=== PATIENT | male | born 1995 | race Caucasian/White ===

== ENCOUNTER 2022-09-05 18:39 | Emergency (ER) | payer MEDICAID ==
[~2022-09-05] VITALS: Ht 162.6 cm; Wt 77.1 kg
[2022-09-05 18:57] VITALS: BP_SYST 123
[2022-09-05] MEDS ORDERED: IBUP-1971 PO (20:27)
[2022-09-05] MEDS ORDERED: VIS25 PO (20:27)
[2022-09-05] MEDS ORDERED: ONDA8TAB60 PO (20:27)
[2022-09-05 20:47] VITALS: BP_SYST 125
== END 2022-09-05 20:47 | disposition home or self-care (01) ==
LOC: SED 18:39
DX: R07.89 Other chest pain (principal); R51.9 Headache, unspecified; F41.9 Anxiety disorder, unspecified; R42 Dizziness and giddiness; F17.210 Nicotine dependence, cigarettes, uncomplicated
CPT/HCPCS: 93005; 99283

== ENCOUNTER 2022-10-21 06:25 | Emergency (ER) | payer MEDICAID ==
[~2022-10-21] VITALS: Ht 157.5 cm; Wt 81.6 kg
[~2022-10-21 06:25] MED LIST: IBUP-1971 PO; ONDA8TAB60 PO; VIS25 PO
[2022-10-21 06:30] VITALS: BP_SYST 137
--- NOTE | 2022-10-21 06:30 | NUR ---
Patient triaged and placed in ER bed 3 for evaluation. Vital signs updated, denied any acute distress at this time. Report given to HANNAH NICHOLAS for continuity of care. Instructed to notify ED staff for any changes in condition or worsening of symptoms. Patient verbalized understanding.
--- NOTE | 2022-10-21 06:50 | NUR ---
PT BIB SELF FROM HOME C/O 01/11 CHEST PAIN THAT RADIATES TO LEFT SHOULDER. PT STATES ASHLEY AND NAUSEA. PT STATES INTERMITTANT CHEST PAIN X 2MO. PT IS AAO X4. PT DENIES PRIOR HISTORY. PT RESTING COMFORTABLY IN BED WITH RAILS UP VSS
[2022-10-21] MEDS ORDERED: KETOROLAC TROMETHAMINE 60 MG/2 ML VIAL IM ONE (07:00)
[2022-10-21 07:08] LABS: BASOPHILS % (AUTO) 0.5 % (0.0-2.0); EOSINOPHILS # (AUTO) 0.3 K/uL (0.0-0.4); EOSINOPHILS % (AUTO) 5.5 % (0.0-4.0); HEMOGLOBIN 15.1 g/dL (14.0-18.0); LYMPHOCYTES # (AUTO) 2.6 K/uL (1.0-5.5); LYMPHOCYTES % (AUTO) 45.8 % (20.5-51.5); MEAN CORPUSCULAR HEMOGLOBIN 30 pg (27-31); MEAN CORPUSCULAR HGB CONC 34 % (32-36); MEAN CORPUSCULAR VOLUME 89 fL (79.0-98.0); MONOCYTES # (AUTO) 0.3 K/uL (0.0-1.0); MONOCYTES % (AUTO) 5.4 % (1.7-9.3); NEUTROPHILS # (AUTO) 2.4 K/uL (1.8-7.7); NEUTROPHILS % (AUTO) 42.8 % (40.0-70.0); PLATELET COUNT (AUTO) 338 K/uL (130-430); RED BLOOD CELL COUNT(AUTO) 4.97 MIL/uL (4.2-6.2); RED CELL DISTRIBUTION WIDTH 12.4 % (9.0-15.0); WHITE BLOOD COUNT (AUTO) 5.7 K/uL (4.8-10.8)
[2022-10-21] MEDS ORDERED: KETOROLAC TROMETHAMINE 30 MG VIAL IVP ONE (07:15)
--- NOTE | 2022-10-21 07:15 | NUR ---
REPORT GIVEN TO PALMER YOUNG
[2022-10-21 07:26] LABS: ALANINE AMINOTRANSFERASE 158 U/L (12-78); ALBUMIN 3.7 g/dL (3.4-4.8); ANION GAP 5 (5-15); ASPARTATE AMINOTRANSFERASE 61 U/L (10-37); CALCIUM 8.6 mg/dL (8.4-11.0); CHLORIDE 102 mmol/L (98-107); CREATININE 0.84 mg/dL (0.55-1.30); GFR AFRICAN AMERICAN 139 mL/min (>90); GLUCOSE 97 mg/dL (70-99); TOTAL BILIRUBIN 0.5 mg/dL (0.0-1.0); UREA NITROGEN, BLOOD 12 mg/dL (8-21)
[2022-10-21] MEDS ORDERED: NAPR-688 PO (07:46)
[2022-10-21 08:03] VITALS: BP_SYST 126
--- NOTE | 2022-10-21 08:04 | NUR ---
Patient given written and verbal discharge instructions and verbalizes understanding. ER MD discussed with patient the results and treatment provided. Patient in stable condition. ID arm band removed. IV catheter removed intact and dressing applied, no active bleeding. Rx of naproxen given. Patient educated on pain management and to follow up with PMD. Pain Scale 0. Opportunity for questions provided and answered. Medication side effect fact sheet provided.
== END 2022-10-21 08:04 | disposition home or self-care (01) ==
LOC: SED 06:25
DX: R07.9 Chest pain, unspecified (principal); M25.512 Pain in left shoulder; M54.2 Cervicalgia; Z79.899 Other long term (current) drug therapy
CPT/HCPCS: 99285; 96374; 71045; 80053; 83880; 85025; 84484; 36415; 93005; J1885

== ENCOUNTER 2022-11-01 18:08 | Emergency (ER) | payer MEDICAID ==
[~2022-11-01] VITALS: Ht 165.1 cm; Wt 86.2 kg
[~2022-11-01 18:08] MED LIST changes: +NAPR-688 PO
[2022-11-01 18:12] VITALS: BP_SYST 155
[2022-11-01] MEDS ORDERED: ONDANSETRON HCL 4 MG/2 ML VIAL IVP ONE (19:00)
[2022-11-01] MEDS ORDERED: KETOROLAC TROMETHAMINE 30 MG VIAL IVP ONE (19:00)
[2022-11-01] MEDS ORDERED: PANTOPRAZOLE SODIUM 40 MG/VIAL (PROTONIX) IVP ONE (19:00)
[2022-11-01] MEDS ORDERED: NACL 0.9% 1,000 ML IV ONE (19:00)
[2022-11-01 19:21] LABS: BASOPHILS % (AUTO) 0.4 % (0.0-2.0); EOSINOPHILS # (AUTO) 0.3 K/uL (0.0-0.4); EOSINOPHILS % (AUTO) 3.2 % (0.0-4.0); HEMATOCRIT 46.1 % (36-54); HEMOGLOBIN 15.4 g/dL (14.0-18.0); LYMPHOCYTES # (AUTO) 2.9 K/uL (1.0-5.5); LYMPHOCYTES % (AUTO) 37.3 % (20.5-51.5); MEAN CORPUSCULAR HEMOGLOBIN 30 pg (27-31); MEAN CORPUSCULAR HGB CONC 33 % (32-36); MEAN CORPUSCULAR VOLUME 90 fL (79.0-98.0); MONOCYTES # (AUTO) 0.5 K/uL (0.0-1.0); MONOCYTES % (AUTO) 6.7 % (1.7-9.3); NEUTROPHILS # (AUTO) 4.1 K/uL (1.8-7.7); NEUTROPHILS % (AUTO) 52.4 % (40.0-70.0); PLATELET COUNT (AUTO) 327 K/uL (130-430); RED BLOOD CELL COUNT(AUTO) 5.12 MIL/uL (4.2-6.2); RED CELL DISTRIBUTION WIDTH 12.7 % (9.0-15.0); WHITE BLOOD COUNT (AUTO) 7.9 K/uL (4.8-10.8)
[2022-11-01 19:22] LABS: ANION GAP 12 (5-15); CALCIUM 8.9 mg/dL (8.4-11.0); CHLORIDE 100 mmol/L (98-107); CREATININE 0.81 mg/dL (0.55-1.30); GFR AFRICAN AMERICAN 145 mL/min (>90); GLUCOSE 99 mg/dL (74-106); UREA NITROGEN, BLOOD 10 mg/dL (8-21)
[2022-11-01 19:28] LABS: ALANINE AMINOTRANSFERASE 216 U/L (12-78); ALBUMIN 4.1 g/dL (3.4-4.8); ALCOHOL, BLOOD < 3 mg/dL (<10); ASPARTATE AMINOTRANSFERASE 97 U/L (10-37); LIPASE 64 U/L (73-393); TOTAL BILIRUBIN 0.6 mg/dL (0.0-1.0)
--- NOTE | 2022-11-01 19:30 | NUR ---
FIRST CONTACT WITH PT. ASSESSMENT COMPLETED. AWAITING EVAL AND ORDERS.
[2022-11-01] MEDS ORDERED: ONDA-8 TL (20:36)
[2022-11-01] MEDS ORDERED: OMEP40CA20 PO (20:36)
[2022-11-01 20:57] VITALS: BP_SYST 144
--- NOTE | 2022-11-01 21:20 | NUR ---
Patient given written and verbal discharge instructions and verbalizes understanding. ER MD CROW discussed with patient the results and treatment provided. Patient in stable condition. ID arm band removed. IV catheter removed intact and dressing applied, no active bleeding. Rx of ZOFRAN given. Patient educated on pain management and to follow up with PMD. Pain Scale 0. Opportunity for questions provided and answered. Medication side effect fact sheet provided.
== END 2022-11-01 21:21 | disposition home or self-care (01) ==
LOC: SED 18:08
DX: K29.20 Alcoholic gastritis without bleeding (principal); R10.13 Epigastric pain; R07.9 Chest pain, unspecified; R11.10 Vomiting, unspecified; Z79.899 Other long term (current) drug therapy
CPT/HCPCS: 99285; 96374; 71045; 96375; 80053; 83880; 83690; 83735; 85025; 84484; 36415; 93005; G0482; J1885; J2405; C9113

== ENCOUNTER 2023-01-11 11:25 | Emergency (ER) | payer MEDICAID ==
[2023-01-11 11:25] VITALS: BP_SYST 140; PULSE 91; RESP 17; TEMP 97.4; O2SAT 98
[~2023-01-11 11:25] MED LIST changes: +OMEP40CA20 PO; +ONDA-8 TL
[2023-01-11] MEDS ORDERED: ONDANSETRON HCL 4 MG/2 ML VIAL IVP ONE (11:45)
[2023-01-11 11:55] LABS: BASOPHILS % (AUTO) 0.3 % (0.0-2.0); EOSINOPHILS # (AUTO) 0.1 K/uL (0.0-0.4); HEMOGLOBIN 15.9 g/dL (14.0-18.0); LYMPHOCYTES # (AUTO) 2.7 K/uL (1.0-5.5); LYMPHOCYTES % (AUTO) 35.4 % (20.5-51.5); MEAN CORPUSCULAR HEMOGLOBIN 31 pg (27-31); MEAN CORPUSCULAR HGB CONC 34 % (32-36); MEAN CORPUSCULAR VOLUME 90 fL (79.0-98.0); MONOCYTES # (AUTO) 0.4 K/uL (0.0-1.0); MONOCYTES % (AUTO) 5.7 % (1.7-9.3); NEUTROPHILS # (AUTO) 4.5 K/uL (1.8-7.7); NEUTROPHILS % (AUTO) 57.6 % (40.0-70.0); PLATELET COUNT (AUTO) 420 K/uL (130-430); RED BLOOD CELL COUNT(AUTO) 5.22 MIL/uL (4.2-6.2); RED CELL DISTRIBUTION WIDTH 12.7 % (9.0-15.0); WHITE BLOOD COUNT (AUTO) 7.7 K/uL (4.8-10.8)
[2023-01-11] MEDS ORDERED: NACL 0.9% 1,000 ML IV ONE (12:00)
[2023-01-11] MEDS ORDERED: FAMOTIDINE PF 20 MG/2 ML VIAL IVP ONE (12:00)
[2023-01-11 12:05] LABS: ANION GAP 15 (5-15); CALCIUM 8.7 mg/dL (8.4-11.0); CARBON DIOXIDE 21 mmol/L (23-29); CHLORIDE 100 mmol/L (98-107); GFR AFRICAN AMERICAN 171 mL/min (>90); GLUCOSE 112 mg/dL (74-106); POTASSIUM 3.3 mmol/L (3.5-5.1); SODIUM SERUM 136 mmol/L (136-145); UREA NITROGEN, BLOOD 5 mg/dL (8-21)
[2023-01-11 12:08] LABS: PROTHROMBIN TIME 10.1 SECS (9.5-12.5)
[2023-01-11 12:11] LABS: ALANINE AMINOTRANSFERASE 189 U/L (12-78); ALBUMIN 4.1 g/dL (3.4-4.8); ALCOHOL, BLOOD 62 mg/dL (<10); ASPARTATE AMINOTRANSFERASE 67 U/L (10-37); CREATINE KINASE, TOTAL 328 U/L (39-308); GFR NON AFRICAN-AMERICAN 142 mL/min (>90); LIPASE 40 U/L (73-393); PHOSPHORUS 2.6 mg/dL (2.7-4.5); TOTAL BILIRUBIN 0.5 mg/dL (0.0-1.0); TOTAL PROTEIN, SERUM 8.3 g/dL (6.4-8.3)
[2023-01-11] MEDS ORDERED: POTASSIUM CHLORIDE 20 MEQ/PKT PACKET PO ONE (12:30)
[2023-01-11 12:33] LABS: CKMB RELATIVE INDEX 0.8 (0.0-2.9); CREATINE KINASE MB 2.5 ng/mL (0-3.6)
[2023-01-11] MEDS ORDERED: MORPHINE 4 MG INJ. 4 MG/ML VIAL IVP ONE (12:45)
[2023-01-11] MEDS ORDERED: POTASSIUM CHLORIDE 20 MEQ/PKT PACKET ONE (12:45)
[2023-01-11] MEDS ORDERED: PRO40 PO (14:18)
[2023-01-11] MEDS ORDERED: SUCR1TAB2 PO (14:18)
[2023-01-11 14:37] VITALS: BP_SYST 142; PULSE 89; RESP 16; TEMP 97.9; O2SAT 98
== END 2023-01-11 14:36 | disposition home or self-care (01) ==
LOC: SED 11:25
DX: K29.20 Alcoholic gastritis without bleeding (principal); K21.9 Gastro-esophageal reflux disease without esophagitis; E87.6 Hypokalemia; R74.01 Elevation of levels of liver transaminase levels; I10 Essential (primary) hypertension; F14.90 Cocaine use, unspecified, uncomplicated; Z79.899 Other long term (current) drug therapy
CPT/HCPCS: 99285; 96374; 71045; 96361; 96375; 80053; 82550; 82553; 83880; 83690; 83735; 84100; 85025; 85610; 85730; 84484; 36415; 93005; G0482; J3490; J2405; J7030